=== PATIENT | male | born 1940 | race Caucasian/White ===

== ENCOUNTER 2016-07-26 18:42 | Emergency (ER) | payer MEDICARE, BC ==
[2016-07-26 19:55] VITALS: TEMP 98.4
[2016-07-26] MEDS ORDERED: ONDANSETRON 4 MG/2 ML VIAL IVP STA (21:45)
[2016-07-26] MEDS ORDERED: HYDROmorphone 1 MG/ML 1 ML SYRINGE IVP STA ×2 (21:45→23:30)
[2016-07-26] MEDS ORDERED: SODIUM CHLORIDE 0.9% 1,000 ML IV STA (21:45)
--- NOTE | 2016-07-26 21:48 | ED ---
Abdominal Pain HPI - General Chief Complaint: Abdominal Pain Stated Complaint: abd pain Time Seen by Provider: 07/26/16 21:37 Source: patient, RN notes reviewed Mode of arrival: wheelchair Limitations: no limitations - History of Present Illness Initial Comments: 75 -year-old male presents to the emergency Department chief complaint of right lower quadrant abdominal pain. The patient has been having this pain since this morning. He has had episodes of vomiting as well. He was evaluated by the home care nurse and they were concerned about possible appendicitis. They denies any changes in urination. He denies any changes in bowel movements. They state they were concerned due to the discomfort so they thought that they should be evaluated. Patient denies any recent fever, chills, shortness of breath, chest pain, back pain, numbness or tingling, dysuria or hematuria, constipation or diarrhea, headaches or visual changes, or any other current symptoms. - Related Data Home Medications Medication Instructions Recorded Confirmed Carvedilol [Coreg*] 12.5 mg PO BID 09/09/14 07/26/16 Cholecalciferol [Vitamin D3] 5,000 unit PO QAM 09/09/14 07/26/16 Multivit-Min/FA/Lycopene/Lut 1 tab PO DAILY 09/09/14 07/26/16 [Centrum Silver Tablet] Cranberry Extract [Theracran] 650 mg PO DAILY 03/29/15 07/26/16 Nitroglycerin Sl Tabs [Nitrostat] 0.4 mg SUBLINGUAL Q5M PRN 03/29/15 07/26/16 ALPRAZolam [Xanax] 0.5 mg PO DAILY PRN 07/26/16 07/26/16 Baclofen 10 mg PO BID 07/26/16 07/26/16 Furosemide [Lasix] 40 mg PO DAILY 07/26/16 07/26/16 Glucosam/Chond/Hyalu/Cf Borate 1 tab PO HS 07/26/16 07/26/16 [Move Free Joint Health Tablet] HYDROcodone/APAP 5-325MG [[place] 1 tab PO BID PRN 07/26/16 07/26/16 5-325] Lactobacillus Acidophilus 1 tab PO DAILY 07/26/16 07/26/16 [Acidophilus] Potassium 99 mg PO DAILY 07/26/16 07/26/16 Spironolactone [Aldactone] 50 mg PO DAILY 07/26/16 07/26/16 Previous Rx's Medication Instructions Recorded Hydrocodone/Acetaminophen [[place] 1 each PO Q6HR PRN #20 tab 07/27/16 5-325] Ondansetron Odt [Zofran ODT] 4 mg PO Q8HR PRN #20 tab 07/27/16 Tamsulosin [Flomax] 0.4 mg PO DAILY #5 cap 07/27/16 Allergies Allergy/AdvReac Type Severity Reaction Status Date / Time cephalexin [From Keflex] Allergy Unknown Verified 07/26/16 22:40 ibuprofen [From Advil] Allergy Anaphylaxis Verified 07/26/16 22:29 Review of Systems ROS Statement: Those systems with pertinent positive or pertinent negative responses have been documented in the HPI. ROS Other: All systems not noted in ROS Statement are negative. Past Medical History Past Medical History: Heart Failure, Diabetes Mellitus, GERD/Reflux, Hyperlipidemia, Hypertension, Liver Disease, Myocardial Infarction ([place]), Osteoarthritis (OA), Renal Disease Additional Past Medical History / Comment(s): cardiomyopathy, enlarged liver- liver cirrhosis, gi bleed 2012, sinusitis, diverticultis.c-dff 10-25-10, psoriases, STATED BOARDERLINE DIABETIC NO MEDS AND DOES'NT CHECK BS Last Myocardial Infarction Date:: unk found per old hx History of Any Multi-Drug Resistant Organisms: MRSA Date of last positivie culture/infection: 04-05-15 MDRO Source:: urine Past Surgical History: Orthopedic Surgery Additional Past Surgical History / Comment(s): left hand tendon repair sx, rt eye cataract-lens implant, colonoscopy Past Anesthesia/Blood Transfusion Reactions: No Reported Reaction Past Psychological History: Anxiety, Depression Additional Psychological History / Comment(s): PT IS ALERT AND ORIENTATED LIVES AT HOME WITH HIS . 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 GETS UP WITH CANE/WALKER SHORT DISTANCES ONLY D/T SOB. PAST HX FALLS. Smoking Status: Former smoker Past Alcohol Use History: Abuse, Daily Additional Past Alcohol Use History / Comment(s): QUIT SMOKING 01-08-14 USED TO SMOKE 1PPD NOT SURE HOW MANY YEARS, STATED DRINKS A FIFTH OF VODKA DAILY-DENIES PAST OR PRESENT DRUG USE. Past Drug Use History: None Reported - Past Family History Father Family Medical History: Prostate Disorder General Exam - General Exam Comments Initial Comments: General: The patient is awake and alert, in no distress, and does not appear acutely ill. Eye: Pupils are equal, round and reactive to light, extra-ocular movements are intact; there is normal conjunctiva bilaterally. No signs of icterus. Ears, nose, mouth and throat: There are moist mucous membranes and no oral lesions. Neck: The neck is supple, there is no tenderness. Cardiovascular: There is a regular rate and rhythm. No murmur, rub or gallop is appreciated. Respiratory: Lungs are clear to auscultation, respirations are non-labored, breath sounds are equal. No wheezes, stridor, rales, or rhonchi. Gastrointestinal: Soft, non-distended, right lower quadrant tenderness of the abdomen without masses or organomegaly noted. There is no rebound or guarding present. No CVA tenderness. Bowel sounds are unremarkable. Back: There is no tenderness to palpation in the midline. There is no obvious deformity. No rashes noted. Musculoskeletal: Normal ROM, no tenderness, There is no pedal edema. There is no calf tenderness or swelling. Sensation intact. Pulses equal bilaterally 2+. Neurological: CN II-XII intact, There are no obvious motor or sensory deficits. Coordination appears grossly intact. Speech is normal. Skin: Skin is warm and dry and no rashes or lesions are noted. Psychiatric: Cooperative, appropriate mood & affect, normal judgment. Limitations: no limitations Course Vital Signs 07/26/16 07/26/16 07/26/16 19:51 21:55 22:00 Temperature 98.4 F Pulse Rate 58 L 66 78 Respiratory 18 18 16 Rate Blood Pressure 156/76 181/73 193/83 O2 Sat by Pulse 96 97 100 Oximetry 07/26/16 07/26/16 23:00 23:55 Temperature Pulse Rate 78 66 Respiratory 18 16 Rate Blood Pressure 178/75 166/74 O2 Sat by Pulse 98 95 Oximetry Medical Decision Making - Medical Decision Making 75-year-old male presents for abdominal pain nausea vomiting. Patient's CAT scan is reviewed additional 5 mm stone which is most likely causing the pain. This time the urine was evaluated as well as lab work that does appear to be at baseline. At this time we discussed to increase fluids at home. We discussed we'll give him medication to help with symptoms. We discussed follow-up and return parameters all patient's questions. He stated he understood the plan. They will be discharged home. - Lab Data Result diagrams: 07/26/16 22:10 07/26/16 22:10 Lab Results 07/26/16 07/26/16 07/26/16 Range/Units 22:10 22:10 22:10 WBC 12.5 H (3.8-10.6) k/uL RBC 5.20 (4.30-5.90) m/uL Hgb 15.3 (13.0-17.5) gm/dL Hct 45.2 (39.0-53.0) % MCV 87.0 (80.0-100.0) fL MCH 29.4 (25.0-35.0) pg MCHC 33.8 (31.0-37.0) g/dL RDW 13.8 (11.5-15.5) % Plt Count 263 (150-450) k/uL Neutrophils % 84 % Lymphocytes % 10 % Monocytes % 4 % Eosinophils % 1 % Basophils % 0 % Neutrophils # 10.6 H (1.3-7.7) k/uL Lymphocytes # 1.2 (1.0-4.8) k/uL Monocytes # 0.5 (0-1.0) k/uL Eosinophils # 0.1 (0-0.7) k/uL Basophils # 0.0 (0-0.2) k/uL PT (9.0-12.0) sec INR (<1.1) APTT (22.0-30.0) sec Sodium 140 (137-145) mmol/L Potassium 4.8 (3.5-5.1) mmol/L Chloride 102 (98-107) mmol/L Carbon Dioxide 22 (22-30) mmol/L Anion Gap 16 mmol/L BUN 43 H (9-20) mg/dL Creatinine 2.60 H (0.66-1.25) mg/dL Est GFR (MDRD) Af Amer 29 (>60 ml/min/1.73 sqM) Est GFR (MDRD) Non-Af 24 (>60 ml/min/1.73 sqM) Glucose 134 H (74-99) mg/dL Plasma Lactic Acid Sha 1.4 (0.7-2.0) mmol/L Calcium 9.8 (8.4-10.2) mg/dL Total Bilirubin 1.4 H (0.2-1.3) mg/dL AST 23 (17-59) U/L ALT 24 (21-72) U/L Alkaline Phosphatase 68 (38-126) U/L Total Protein 8.2 (6.3-8.2) g/dL Albumin 4.9 (3.5-5.0) g/dL Amylase 91 (30-110) U/L Lipase 93 (23-300) U/L Urine Color Urine Appearance (Clear) Urine pH (5.0-8.0) Ur Specific [place] (1.001-1.035) Urine Protein (Negative) Urine Glucose (UA) (Negative) Urine Ketones (Negative) Urine Blood (Negative) Urine Nitrite (Negative) Urine Bilirubin (Negative) Urine Urobilinogen (<2.0) mg/dL Ur Leukocyte Esterase (Negative) Urine RBC (0-5) /hpf Urine WBC (0-5) /hpf Ur Squamous Epith Cells (0-4) /hpf Ur Renal Epithelial Cell (0) /hpf Urine Bacteria (None) /hpf 07/26/16 07/26/16 Range/Units 22:10 23:50 WBC (3.8-10.6) k/uL RBC (4.30-5.90) m/uL Hgb (13.0-17.5) gm/dL Hct (39.0-53.0) % MCV (80.0-100.0) fL MCH (25.0-35.0) pg MCHC (31.0-37.0) g/dL RDW (11.5-15.5) % Plt Count (150-450) k/uL Neutrophils % % Lymphocytes % % Monocytes % % Eosinophils % % Basophils % % Neutrophils # (1.3-7.7) k/uL Lymphocytes # (1.0-4.8) k/uL Monocytes # (0-1.0) k/uL Eosinophils # (0-0.7) k/uL Basophils # (0-0.2) k/uL PT 11.1 (9.0-12.0) sec INR 1.1 (<1.1) APTT 24.1 (22.0-30.0) sec Sodium (137-145) mmol/L Potassium (3.5-5.1) mmol/L Chloride (98-107) mmol/L Carbon Dioxide (22-30) mmol/L Anion Gap mmol/L BUN (9-20) mg/dL Creatinine (0.66-1.25) mg/dL Est GFR (MDRD) Af Amer (>60 ml/min/1.73 sqM) Est GFR (MDRD) Non-Af (>60 ml/min/1.73 sqM) Glucose (74-99) mg/dL Plasma Lactic Acid Sha (0.7-2.0) mmol/L Calcium (8.4-10.2) mg/dL Total Bilirubin (0.2-1.3) mg/dL AST (17-59) U/L ALT (21-72) U/L Alkaline Phosphatase (38-126) U/L Total Protein (6.3-8.2) g/dL Albumin (3.5-5.0) g/dL Amylase (30-110) U/L Lipase (23-300) U/L Urine Color Light Yellow Urine Appearance Clear (Clear) Urine pH 5.5 (5.0-8.0) Ur Specific [place] 1.008 (1.001-1.035) Urine Protein Negative (Negative) Urine Glucose (UA) Negative (Negative) Urine Ketones Negative (Negative) Urine Blood Trace H (Negative) Urine Nitrite Negative (Negative) Urine Bilirubin Negative (Negative) Urine Urobilinogen <2.0 (<2.0) mg/dL Ur Leukocyte Esterase Negative (Negative) Urine RBC 3 (0-5) /hpf Urine WBC 1 (0-5) /hpf Ur Squamous Epith Cells <1 (0-4) /hpf Ur Renal Epithelial Cell <1 (0) /hpf Urine Bacteria Rare H (None) /hpf - Radiology Data Radiology results: report reviewed, image reviewed Disposition Clinical Impression: Ureteral calculus Disposition: HOME SELF-CARE Condition: Stable Instructions: Kidney Stones (ED) Additional Instructions: Please use medication as discussed. Please follow up with family doctor if symptoms have not improved over the next two days. Please return to the emergency room if your symptoms increase or worsen or for any other concerns. Prescriptions: Hydrocodone/Acetaminophen [[place] 5-325] 1 each PO Q6HR PRN #20 tab PRN Reason: Pain Ondansetron Odt [Zofran ODT] 4 mg PO Q8HR PRN #20 tab PRN Reason: Nausea Tamsulosin [Flomax] 0.4 mg PO DAILY #5 cap Referrals: Ольга Torres DO [Primary Care Provider] - 1-2 days Carols Dyson MD [STAFF PHYSICIAN] - 1-2 days Time of Disposition: 00:40
[2016-07-26 22:37] LABS: Basophils % (A) 0 %; CH 30.4; CHCM 35.2; Eosinophils # (A) 0.1 k/uL (0-0.7); Eosinophils % (A) 1 %; HCT 45.2 % (39.0-53.0); HDW 3.05; HGB 15.3 gm/dL (13.0-17.5); Luc # (Auto) 0.15; Luc % (Auto) 1; Lymphocytes # (A) 1.2 k/uL (1.0-4.8); Lymphocytes % (A) 10 %; MCH 29.4 pg (25.0-35.0); MCHC 33.8 g/dL (31.0-37.0); Mean Platelet Volume 7.1; Monocytes # (A) 0.5 k/uL (0-1.0); Monocytes % (A) 4 %; Neutrophils # (A) 10.6 k/uL (1.3-7.7); Neutrophils % (A) 84 %; RDW 13.8 % (11.5-15.5); WBC 12.5 k/uL (3.8-10.6); WBC (Perox) 12.74
[2016-07-26 22:47] LABS: INR 1.1 (<1.1); Partial Thromboplastin Time 24.1 sec (22.0-30.0); Prothrombin Time 11.1 sec (9.0-12.0)
[2016-07-26 22:51] LABS: Calcium 9.8 mg/dL (8.4-10.2); Potassium 4.8 mmol/L (3.5-5.1); Total Bilirubin 1.4 mg/dL (0.2-1.3); Total Protein 8.2 g/dL (6.3-8.2)
--- NOTE | 2016-07-26 23:18 | CT ---
EXAM: CT ABDOMEN + PELVIS Without Contrast INDICATION: 75-year-old male with pain. COMPARISON: CT abdomen and pelvis 03/28/2015. TECHNIQUE: Multiple axial CT images of the abdomen and pelvis without contrast material. Renal stone protocol. Reformatted coronal and sagittal images are submitted. DOSE: CTDI is 27.8 mGy and DLP is 1364.8 mGy-cm. DOSE REDUCTION: This CT exam was performed using one or more of the following dose reduction techniques: automated exposure control, adjustment of the mA and/or kV according to patient size, and/or use of iterative reconstruction technique. FINDINGS: Lung bases: Lung bases are clear. No pleural effusions. Solid organs: Redemonstrated multiple renal calculi in both kidneys measuring up to 1.0 cm in the inferior pole of the right kidney. There is moderate right hydronephrosis and mild hydroureter with a 5 mm stone in the distal right ureter at the ureterovesical junction. Redemonstrated plaque-like calcification in the posterior inferior right urinary bladder near the right ureteral orifice, unchanged. There is cortical atrophy in both kidneys, as before. No significant change since comparison. Mild right periureteral and perinephric stranding. Cholelithiasis. Remaining solid organs are unremarkable in this noncontrasted examination tailored for the evaluation of renal calculi. GI tract: No bowel obstruction. Colonic diverticulosis with evidence of diverticulitis. Stomach and small bowel are within normal limits. No free intraperitoneal air or fluid. Lymph nodes: No adenopathy. Vascular: Arteriovascular calcifications, as before. No evidence of aneurysm. Musculoskeletal: Osseous demineralization. No acute osseous abnormality. No aggressive appearing osseous lesion. Stable compression deformity of the T12 vertebral body. Stable small fat-containing umbilical hernia. Pelvic contents: No pelvic adenopathy, free fluid, or inflammatory process. Coarse calcific and the prostate gland are noted. IMPRESSION: 1. A 5 mm obstructing calculus in distal right ureter near the ureterovesical junction results in moderate obstructive uropathy. 2. Stable bilateral cortical atrophy and nonobstructing calculi in both kidneys. 3. Cholelithiasis. 4. Colonic diverticulosis without evidence of diverticulitis. 5. Additional chronic findings, as above.
[2016-07-26] MEDS ORDERED: TAMSULOSIN 0.4 MG CAP.ER.24H PO STA (23:19)
[2016-07-27 00:27] LABS: Appearance,Urine Clear (Clear); Bacteria,Urine Rare /hpf; Bilirubin,Urine Negative (Negative); Glucose,Urine (UA) Negative (Negative); Ketones,Urine Negative (Negative); Leukocyte Esterase,Urine Negative (Negative); Nitrite,Urine Negative (Negative); PH, Urine 5.5 (5.0-8.0); Particle Count 4410; Protein,Urine Negative (Negative); RBC,Urine 3 /hpf (0-5); Renal Epithelial Cells,Urine <1 /hpf (0); Specific Gravity,Urine 1.008 (1.001-1.035); Squamous Epithelial Cell,Urine <1 /hpf (0-4); UA Billing (MACRO vs. MICRO) MICRO; Urobilinogen,Urine <2.0 mg/dL (<2.0); WBC,Urine 1 /hpf (0-5)
[2016-07-27 00:57] VITALS: BP 138/78; PULSE 62; RESP 18
== END 2016-07-27 00:55 | disposition home or self-care (01) ==
LOC: EC 18:42
DX: N20.1 Calculus of ureter (principal); M19.90 Unspecified osteoarthritis, unspecified site; I11.0 Hypertensive heart disease with heart failure; I50.9 Heart failure, unspecified; Z88.1 Allergy status to other antibiotic agents; Z88.8 Allergy status to other drugs, medicaments and biological substances; Z87.891 Personal history of nicotine dependence; Z79.899 Other long term (current) drug therapy
CPT/HCPCS: 99284; 96374; 96376; 96375; 96361; 36415; 80053; 82150; 83605; 83690; 85025; 85610; 85730; 81001; 87040; 87086; 74176; J2405; J1170

== ENCOUNTER 2020-08-01 11:53 | Inpatient (IN) | payer MEDICARE, BC ==
[2020-08-01] MEDS ORDERED: HYDROmorphone 0.5 MG/0.5 ML SYRINGE IVP STA (12:22)
--- NOTE | 2020-08-01 12:24 | ED ---
General Adult HPI - General Chief complaint: Upper Respiratory Infection Stated complaint: CHF Pnuemonia Time Seen by Provider: 08/01/20 12:00 Source: patient, EMS, RN notes reviewed, old records reviewed Mode of arrival: EMS Limitations: no limitations - History of Present Illness Initial comments: This is a 79-year-old male who was transferred from [facility] he had initially gone there this morning because of difficulty breathing son called EMS because he was short of breath. After he went to [facility] they indicated that the patient had congestive heart failure and maybe pneumonia. Patient did not have an EKG in the packet patient did not have an x-ray or an x- ray read in the packet. No antibiotics were given that we can tell. Patient currently complains of some back pain which she states is chronic but it hurts laying in the bed. Patient denies any shortness of breath currently. Patient denies any chest pain or palpitations. Patient denies abdominal pain patient denies nausea vomiting or diarrhea. - Related Data Home Medications Medication Instructions Recorded Confirmed Cholecalciferol [Vitamin D3 (25 5,000 unit PO QAM 09/09/14 07/26/16 Mcg = 1000 Iu)] Multivit-Min/FA/Lycopene/Lut 1 tab PO DAILY 09/09/14 07/26/16 [Centrum Silver Tablet] carvediloL [Coreg*] 12.5 mg PO BID 09/09/14 07/26/16 Cranberry Fruit Extract [Theracran] 650 mg PO DAILY 03/29/15 07/26/16 Nitroglycerin Sl Tabs [Nitrostat] 0.4 mg SUBLINGUAL Q5M PRN 03/29/15 07/26/16 ALPRAZolam [Xanax] 0.5 mg PO DAILY PRN 07/26/16 07/26/16 Baclofen 10 mg PO BID 07/26/16 07/26/16 Furosemide [Lasix] 40 mg PO DAILY 07/26/16 07/26/16 Glucosam/Chond/Hyalu/Cf Borate 1 tab PO HS 07/26/16 07/26/16 [Move Free Joint Health Tablet] HYDROcodone/APAP 5-325MG [[place] 1 tab PO BID PRN 07/26/16 07/26/16 5-325] Lactobacillus Acidophilus 1 tab PO DAILY 07/26/16 07/26/16 [Acidophilus] Potassium 99 mg PO DAILY 07/26/16 07/26/16 Spironolactone [Aldactone] 50 mg PO DAILY 07/26/16 07/26/16 Previous Rx's Medication Instructions Recorded Hydrocodone/Acetaminophen [[place] 1 each PO Q6HR PRN #20 tab 07/27/16 5-325] Ondansetron Odt [Zofran ODT] 4 mg PO Q8HR PRN #20 tab 07/27/16 Tamsulosin [Flomax] 0.4 mg PO DAILY #5 cap 07/27/16 Allergies Allergy/AdvReac Type Severity Reaction Status Date / Time cephalexin [From Keflex] Allergy Unknown Verified 07/26/16 22:40 ibuprofen [From Advil] Allergy Anaphylaxis Verified 07/26/16 22:29 Review of Systems ROS Statement: Those systems with pertinent positive or pertinent negative responses have been documented in the HPI. ROS Other: All systems not noted in ROS Statement are negative. Past Medical History Past Medical History: Heart Failure, Diabetes Mellitus, GERD/Reflux, Hyperlipidemia, Hypertension, Liver Disease, Myocardial Infarction ([place]), Osteoarthritis (OA), Renal Disease Additional Past Medical History / Comment(s): cardiomyopathy, enlarged liver- liver cirrhosis, gi bleed 2012, sinusitis, diverticultis.c-dff 10-25-10, psoriases, STATED BOARDERLINE DIABETIC NO MEDS AND DOES'NT CHECK BS Last Myocardial Infarction Date:: unk found per old hx History of Any Multi-Drug Resistant Organisms: MRSA Date of last positivie culture/infection: 04-05-15 MDRO Source:: urine Past Surgical History: Orthopedic Surgery Additional Past Surgical History / Comment(s): left hand tendon repair sx, rt eye cataract-lens implant, colonoscopy Past Anesthesia/Blood Transfusion Reactions: No Reported Reaction Past Psychological History: Anxiety, Depression Smoking Status: Former smoker Past Alcohol Use History: None Reported Past Drug Use History: None Reported - Past Family History Father Family Medical History: Prostate Disorder General Exam - General Exam Comments Initial Comments: GENERAL: Patient is well-developed and well-nourished. Patient is nontoxic and well- hydrated and is in mild distress. ENT: Neck is soft and supple. No significant lymphadenopathy is noted. Oropharynx is clear. Moist mucous membranes. Neck has full range of motion without eliciting any pain. EYES: The sclera were anicteric and conjunctiva were pink and moist. Extraocular movements were intact and pupils were equal round and reactive to light. Eyelids were unremarkable. PULMONARY: Unlabored respirations. Good breath sounds bilaterally. Crackles at the bases more in the right than the left CARDIOVASCULAR: There is a regular rate and rhythm without any murmurs gallops or rubs. ABDOMEN: Soft and nontender with normal bowel sounds. SKIN: Skin is clear with no lesions or rashes and otherwise unremarkable. NEUROLOGIC: Patient is alert and oriented x3. Cranial nerves II through XII are grossly intact. Motor and sensory are also intact. Normal speech, volume and content. Symmetrical smile. MUSCULOSKELETAL: Normal extremities with adequate strength and full range of motion. 1+ edema bilateral LYMPHATICS: No significant lymphadenopathy is noted PSYCHIATRIC: Normal psychiatric evaluation. Limitations: no limitations Course Vital Signs 08/01/20 08/01/20 12:05 13:23 Temperature 99.2 F Pulse Rate 95 70 Respiratory 18 18 Rate Blood Pressure 130/74 122/51 O2 Sat by Pulse 95 98 Oximetry Medical Decision Making - Medical Decision Making EKG shows sinus rhythm at 89 bpm WA interval is 216 QRS is 174 QT interval 446 QTC is 542 patient's left bundle branch block. Patient also has some occasional PVCs. Lactic acid was within normal range and troponin was unchanged. I spoke with Dr. Preston he agreed to admit the patient and the patient and wrote admitting orders. - Lab Data Lab Results 08/01/20 08/01/20 Range/Units 12:31 12:31 Plasma Lactic Acid Sha 1.2 (0.7-2.0) mmol/L Troponin I 0.033 (0.000-0.034) ng/mL Disposition Clinical Impression: Pulmonary edema Disposition: ADMITTED IP TO THIS HOSP Referrals: Ольга Torres DO [Primary Care Provider] - 1-2 days Time of Disposition: 14:27
--- NOTE | 2020-08-01 13:31 | XR ---
EXAMINATION TYPE: XR chest 2V DATE OF EXAM: 08/01/2020 COMPARISON: 04/06/2015 HISTORY: Shortness of breath TECHNIQUE: Frontal and lateral views of the chest are obtained. FINDINGS: Scattered senescent parenchymal changes noted. No evidence for infiltrate. No evidence for atelectasis. Heart size is stable. Mediastinal structures are stable and grossly unremarkable. No evidence for hilar prominence. Degenerative changes dorsal spine. IMPRESSION: 1. No evidence for acute pulmonary disease.
[2020-08-01] MEDS: FUROSEMIDE 10 MG/ML 2 ML VIAL IV SCH (15:15)
[2020-08-01 21:58] LABS: Glucose,Whole Blood 114 mg/dL (75-99)
[2020-08-01] MEDS: ALPRAZolam 0.5 MG TAB PO SCH (23:34)
[2020-08-01] MEDS: ATORVASTATIN 10 MG TAB PO SCH (23:34)
[2020-08-02] MEDS: FUROSEMIDE 10 MG/ML 2 ML VIAL IV SCH ×2 (02:29→15:08)
[2020-08-02] MEDS: BACLOFEN 10 MG TAB PO SCH (08:20)
[2020-08-02] MEDS: ATORVASTATIN 10 MG TAB PO SCH (08:20)
[2020-08-02] MEDS: SPIRONOLACTONE 25 MG TAB PO SCH (08:20)
[2020-08-02] MEDS: carvediloL 12.5 MG TAB PO SCH ×2 (08:21→18:07)
[2020-08-02] MEDS: predniSONE 5 MG TAB PO SCH (10:33)
[2020-08-02 11:52] LABS: Glucose,Whole Blood 142 mg/dL (75-99)
--- NOTE | 2020-08-02 12:42 | P.CRDCN ---
History of Present Illness History of present illness: HISTORY OF PRESENTING ILLNESS The patient is a pleasant 73-year-old male patient with a past medical history significant for congestive heart failure with reduced EF 20-25%, diabetes type 2, hypertension, dyslipidemia, as well as liver cirrhosis who follow up with Dr. Sheldon as an outpatient one time in 2015 but he did not follow- up with him after that one visit. We have been asked to see in consultation for congestive heart failure. Patient presents to [facility] as a transfer from [facility]. Per Chart Review, Friday07/29/2020 in the afternoon patient had a mechanical fall. Patient step daughter states she was outside and had patient yelling "help". Patient was found lying on the bathroom floor, skin tear second digit and bruising present to left hand. EMS was called and patient refused transfer to the hospital. Patient has purposely gotten weaker since the fall unable to stand on his own. He was previously ambulatory with a walker. Patient was brought to [place] due to difficulty breathing. Patient seen and examined at bedside. When asking him how he fell, he states he just got very weak and felt his legs give out. in 2015 patient was found to have cardiomyopathy with an EF 25%. At that time patient had a long discussion with Dr. Sheldon and he agreed to only have medical treatment. He was maximize the medical treatment except an ADRIAN inhibitor due to his kidney function at that time. Patient is a former smoker. He denies alcohol use. he denies chest pain, palpitations, lightheadedness, dizziness, nausea,diaphorsis. EKG reveals sinus mechanism, left bundle branch block Prior EKGs -showing sinus mechanism was left bundle branch block morphology. Chest xray no acute cardiopulmonary process. Laboratory reviewed at [facility] and [facility]- troponin negative x 3, Covid-19 negative, Pro BNP- 1,280, lactic 3.3- 1.2, TSH 1.6, WBC 13.04, Hgb 13.9, Plt 181. Current cardiac medications include carvedilol 12.5 mg twice daily, spironolactone 50 mg daily, Lasix 20 mg daily, atorvastatin 10 mg daily. Echocardiogram 09/2014 EF 20-25%, trace to mild mitral regurgitation REVIEW OF SYSTEMS At the time of my exam: CONSTITUTIONAL: Denies fever or chills. CARDIOVASCULAR: +shortness of breath Denies chest pain, orthopnea, PND or palpitations. RESPIRATORY: Denies cough. GASTROINTESTINAL: Denies abdominal pain, diarrhea, constipation, nausea or vomiting. MUSCULOSKELETAL: +weakness bilateral lower extremities. Denies myalgias. NEUROLOGIC: Denies numbness, tingling, headacbe or weakness. ENDOCRINE: Denies fatigue, weight change, polydipsia or polyurina. GENITOURINARY: Denies burning, hematuria or urgency with micturation. HEMATOLOGIC: Denies history of anemia or bleeding. PHYSICAL EXAMINATION Blood pressure 137/74 heart rate 74 afebrile and maintaining oxygen saturation on 3L nasal cannula . CONSTITUTIONAL: No apparent distress. HEENT: Head is normocephalic. Pupils are equal, round. Sclerae anicteric. Mucous membranes of the mouth are moist. No JVD. No carotid bruit. CHEST EXAMINATION: Lungs are clear to auscultation. No chest wall tenderness is noted on palpation or with deep breathing. HEART EXAMINATION: Regular rate and rhythm. S1, S2 heard. No murmurs, gallops or rub. ABDOMEN: Soft, nontender. Positive bowel sounds. EXTREMITIES: 2+ peripheral pulses, no lower extremity edema and no calf tenderness. NEUROLOGIC EXAMINATION: Patient is awake, alert and oriented x3. ASSESSMENT Mechanical Fall Shortness of breath Acute on Chronic Systolic heart failure with previous EF 20-25% Type 2 diabetes Hypertension Dyslipidemia History of liver disease PLAN Obtain 2D echocardiogram Continue maximizing medical therapy with Lasix, statin, carvedilol, spironolactone Monitor renal function and electrolytes Further recommendations based on clinical course Nurse Practitioner note has been reviewed, I agree with a documented findings and plan of care. Patient was seen and examined. Past Medical History Past Medical History: Heart Failure, Diabetes Mellitus, GERD/Reflux, Hy perlipidemia, Hypertension, Liver Disease, Myocardial Infarction ([place]), Osteoarthritis (OA), Renal Disease Additional Past Medical History / Comment(s): cardiomyopathy, enlarged liver- liver cirrhosis, gi bleed 2012, sinusitis, diverticultis.c-dff 10-25-10, psoriases, STATED BOARDERLINE DIABETIC NO MEDS AND DOES'NT CHECK BS Last Myocardial Infarction Date:: unk found per old hx History of Any Multi-Drug Resistant Organisms: MRSA Date of last positivie culture/infection: 1-27-16 MDRO Source:: urine Past Surgical History: Orthopedic Surgery Additional Past Surgical History / Comment(s): left hand tendon repair sx, rt eye cataract-lens implant, colonoscopy Past Anesthesia/Blood Transfusion Reactions: No Reported Reaction Past Psychological History: Anxiety, Depression Additional Psychological History / Comment(s): PT IS ALERT AND ORIENTATED LIVES AT HOME WITH HIS . PT IS A RETIRED [employer]. GETS UP WITH CANE/WALKER SHORT DISTANCES ONLY D/T SOB. PAST HX FALLS. Smoking Status: Former smoker Past Alcohol Use History: None Reported Additional Past Alcohol Use History / Comment(s): QUIT SMOKING 01-08-14 USED TO SMOKE 1PPD NOT SURE HOW MANY YEARS, STATED DRINKS A FIFTH OF VODKA DAILY-DENIES PAST OR PRESENT DRUG USE. Past Drug Use History: None Reported - Past Family History Father Family Medical History: Prostate Disorder Medications and Allergies Home Medications Medication Instructions Recorded Confirmed Type carvediloL [Coreg*] 12.5 mg PO BID 09/09/14 08/01/20 History ALPRAZolam [Xanax] 0.5 mg PO HS 07/26/16 08/01/20 History Baclofen 10 mg PO DAILY 07/26/16 08/01/20 History Spironolactone [Aldactone] 50 mg PO DAILY 07/26/16 08/01/20 History Atorvastatin [Lipitor] 10 mg PO DAILY 08/01/20 08/01/20 History Furosemide [Lasix] 20 mg PO DAILY 08/01/20 08/01/20 History Montelukast [Singulair] 10 mg PO AC-SUPPER 08/01/20 08/01/20 History predniSONE 7.5 mg PO DAILY 08/01/20 08/01/20 History Allergies Allergy/AdvReac Type Severity Reaction Status Date / Time cephalexin [From Keflex] Allergy Unknown Verified 08/01/20 14:57 ibuprofen [From Advil] Allergy Anaphylaxis Verified 08/01/20 14:57 morphine Allergy Unknown Verified 08/01/20 14:57 Physical Exam Vitals: Vital Signs Temp Pulse Pulse Resp BP BP Pulse Ox 08/02/20 07:00 99.3 F 74 20 137/74 97 08/02/20 02:00 99.6 F 75 16 143/82 92 L 08/01/20 21:00 98.5 F 77 16 157/82 99 08/01/20 17:41 70 16 129/61 100 08/01/20 15:19 98.7 F 08/01/20 15:06 92 16 126/68 96 08/01/20 13:23 70 18 122/51 98 Intake and Output 08/01/20 08/02/20 08/02/20 22:59 06:59 14:59 Intake Total 240 240 Output Total 1250 700 Balance -1010 -700 240 Intake: Oral 240 240 Output: Urine 1250 700 Other: Voiding Method Indwelling Catheter Indwelling Catheter Indwelling Catheter Weight 98 kg Results Cardiac Enzymes 08/01/20 Range/Units 12:31 Troponin I 0.033 (0.000-0.034) ng/mL Current Medications Generic Name Dose Route Start Last Admin Trade Name Freq PRN Reason Stop Dose Admin Alprazolam 0.5 mg 08/01/20 23:00 08/01/20 23:34 Alprazolam 0.5 Mg Tab PO 0.5 mg HS JESSICA Administration Atorvastatin Calcium 10 mg 08/01/20 23:00 08/02/20 08:20 Atorvastatin 10 Mg Tab PO 10 mg DAILY JESSICA Administration Baclofen 10 mg 08/02/20 09:00 08/02/20 08:20 Baclofen 10 Mg Tab PO 10 mg DAILY JESSICA Administration Carvedilol 12.5 mg 08/02/20 07:30 08/02/20 08:21 Carvedilol 12.5 Mg Tab PO 12.5 mg BID-W/MEALS JESSICA Administration Furosemide 20 mg 08/01/20 14:30 08/02/20 02:29 Furosemide 10 Mg/Ml 2 Ml Vial IV 20 mg Q12H JESSICA Administration Insulin Aspart 0 unit 08/02/20 12:30 Insulin Aspart (Novolog) 100 Unit/Ml Vial SQ ACHS [facility] Protocol Montelukast Sodium 10 mg 08/02/20 17:30 Montelukast 10 Mg Tab PO AC-SUPPER JESSICA Prednisone 7.5 mg 08/02/20 09:30 08/02/20 10:33 Prednisone 5 Mg Tab PO 7.5 mg DAILY JESSICA Administration Spironolactone 50 mg 08/02/20 09:00 08/02/20 08:20 Spironolactone 25 Mg Tab PO 50 mg DAILY JESSICA Administration Intake and Output 08/01/20 08/02/20 08/02/20 22:59 06:59 14:59 Intake Total 240 240 Output Total 1250 700 Balance -1010 -700 240 Intake: Oral 240 240 Output: Urine 1250 700 Other: Voiding Method Indwelling Catheter Indwelling Catheter Indwelling Catheter Weight 98 kg
[2020-08-02] MEDS: INSULIN ASPART (NovoLOG) 100 UNIT/ML VIAL SQ SCH ×3 (13:12→20:46)
[2020-08-02 15:14] VITALS: BMI 33.8
[2020-08-02 17:35] LABS: Glucose,Whole Blood 257 mg/dL (75-99)
[2020-08-02] MEDS: MONTELUKAST 10 MG TAB PO SCH (18:07)
[2020-08-02 20:13] LABS: Glucose,Whole Blood 161 mg/dL (75-99)
[2020-08-02] MEDS: ALPRAZolam 0.5 MG TAB PO SCH (20:46)
[2020-08-03] MEDS: FUROSEMIDE 10 MG/ML 2 ML VIAL IV SCH ×2 (02:05→15:58)
[2020-08-03 06:21] LABS: ALT 33 U/L (4-49); AST 41 U/L (17-59); African American GFR (CKD) 33 (>60 ml/min/1.73 sqM); Albumin 3.5 g/dL (3.5-5.0); Albumin/Globulin Ratio 1.4; Alkaline Phosphatase 59 U/L (38-126); Anion Gap 10 mmol/L; Blood Urea Nitrogen 42 mg/dL (9-20); Calcium 8.4 mg/dL (8.4-10.2); Carbon Dioxide 27 mmol/L (22-30); Chloride 101 mmol/L (98-107); Globulin 2.5 g/dL; Glucose 92 mg/dL (74-99); Non-African American GFR(CKD) 29 (>60 ml/min/1.73 sqM); Potassium 3.5 mmol/L (3.5-5.1); Sodium 138 mmol/L (137-145); Total Bilirubin 1.9 mg/dL (0.2-1.3)
[2020-08-03 07:31] LABS: Glucose,Whole Blood 98 mg/dL (75-99)
[2020-08-03] MEDS: INSULIN ASPART (NovoLOG) 100 UNIT/ML VIAL SQ SCH ×3 (07:43→18:22)
[2020-08-03] MEDS: carvediloL 12.5 MG TAB PO SCH ×2 (07:44→16:43)
--- NOTE | 2020-08-03 08:25 | P.HPIM ---
History of Present Illness H&P Date: 08/02/20 Chief Complaint: fall, shortness of breath Jose Ramon Naylor is a 79 yo M with PMH of cardiomyopathy, systolic CHF with EF 25%, chronic neck pain who presented to the ED complaining of increasing weakness and shortness of breath. He notes that he had a fall at home a few days ago where his legs gave out from under him and family heard him call out from help. EMS came to evaluate pt and recommended he come to hospital but he declined. He has worsened since then. On presentation to the ED his vitals were stable, labs notable for Cr 2.2, trop negative, COVID negative, BNP 1200. Review of Systems All systems: negative Constitutional: Reports weakness, Denies chills, Denies fever Eyes: denies blurred vision, denies pain Ears, nose, mouth and throat: Denies headache, Denies sore throat Cardiovascular: Reports syncope, Denies chest pain, Denies shortness of breath Respiratory: Reports cough with sputum, Denies cough Gastrointestinal: Denies abdominal pain, Denies diarrhea, Denies nausea, Denies vomiting Musculoskeletal: Denies myalgias Integumentary: Denies pruritus, Denies rash Neurological: Denies numbness, Denies weakness Psychiatric: Denies anxiety, Denies depression Endocrine: Denies fatigue, Denies weight change Past Medical History Past Medical History: Heart Failure, Diabetes Mellitus, GERD/Reflux, Hype rlipidemia, Hypertension, Liver Disease, Myocardial Infarction ([place]), Osteoarthritis (OA), Renal Disease Additional Past Medical History / Comment(s): cardiomyopathy, enlarged liver- liver cirrhosis, gi bleed 2012, sinusitis, diverticultis.c-dff 10-25-10, psoriases, STATED BOARDERLINE DIABETIC NO MEDS AND DOES'NT CHECK BS Last Myocardial Infarction Date:: unk found per old hx History of Any Multi-Drug Resistant Organisms: MRSA Date of last positivie culture/infection: 04-05-15 MDRO Source:: urine Past Surgical History: Orthopedic Surgery Additional Past Surgical History / Comment(s): left hand tendon repair sx, rt eye cataract-lens implant, colonoscopy Past Anesthesia/Blood Transfusion Reactions: No Reported Reaction Past Psychological History: Anxiety, Depression Additional Psychological History / Comment(s): PT IS ALERT AND ORIENTATED LIVES AT HOME WITH HIS . PT IS A RETIRED DISTRIBUTION DISPATCHER. GETS UP WITH CANE/WALKER SHORT DISTANCES ONLY D/T SOB. PAST HX FALLS. Smoking Status: Former smoker Past Alcohol Use History: None Reported Additional Past Alcohol Use History / Comment(s): QUIT SMOKING 01-08-14 USED TO SMOKE 1PPD NOT SURE HOW MANY YEARS, STATED DRINKS A FIFTH OF VODKA DAILY-DENIES PAST OR PRESENT DRUG USE. Past Drug Use History: None Reported - Past Family History Father Family Medical History: Prostate Disorder Medications and Allergies Home Medications Medication Instructions Recorded Confirmed Type carvediloL [Coreg*] 12.5 mg PO BID 09/09/14 08/01/20 History ALPRAZolam [Xanax] 0.5 mg PO HS 07/26/16 08/01/20 History Baclofen 10 mg PO DAILY 07/26/16 08/01/20 History Spironolactone [Aldactone] 50 mg PO DAILY 07/26/16 08/01/20 History Atorvastatin [Lipitor] 10 mg PO DAILY 08/01/20 08/01/20 History Furosemide [Lasix] 20 mg PO DAILY 08/01/20 08/01/20 History Montelukast [Singulair] 10 mg PO AC-SUPPER 08/01/20 08/01/20 History predniSONE 7.5 mg PO DAILY 08/01/20 08/01/20 History Allergies Allergy/AdvReac Type Severity Reaction Status Date / Time cephalexin [From Keflex] Allergy Unknown Verified 08/01/20 14:57 ibuprofen [From Advil] Allergy Anaphylaxis Verified 08/01/20 14:57 morphine Allergy Unknown Verified 08/01/20 14:57 Physical Exam Vitals: Vital Signs Temp Pulse Resp BP Pulse Ox 08/02/20 20:00 98.1 F 85 17 105/55 97 08/02/20 15:00 99.1 F 93 20 103/54 95 08/02/20 07:00 99.3 F 74 20 137/74 97 08/02/20 02:00 99.6 F 75 16 143/82 92 L Intake and Output 08/02/20 08/02/20 08/03/20 14:59 22:59 06:59 Intake Total 477 Output Total 0 600 Balance 477 -600 Intake: Oral 477 Output: Urine 600 Other 0 Other: Voiding Method Indwelling Catheter Indwelling Catheter # Voids 2 Weight 89.5 kg General: well nourished, well developed, NAD. Vitals reviewed Eyes: PERRL, EOMI, conjunctiva normal HENT: normocephalic, mucus membranes moist Neck: supple, no JVD Lungs: normal respiratory effort, no wheezes or rales CV: Regular rate and rhythm, systolic murmur. Peripheral pulses 2+ Abdomen: soft, nondistended, no organomegaly Lymph: no cervical or axillary LAD Skin: warm and dry. Neuro: A&Ox3, normal mood and affect Results CBC & Chem 7: 08/03/20 04:37 Labs: Abnormal Lab Results - Last 24 Hours (Table) 08/02/20 08/02/20 08/02/20 Range/Units 11:49 17:32 20:11 POC Glucose (mg/dL) 142 H 257 H 161 H (75-99) mg/dL Thrombosis Risk Factor Assmnt - Choose All That Apply Each Factor Represents 1 point: Heart failure (<1month), Obesity (BMI >25), Swollen legs (current) Each Risk Factor Represents 3 Points: Age 75 years or older Thrombosis Risk Factor Assessment Total Risk Factor Score: 6 Thrombosis Risk Factor Assessment Level: High Risk Assessment and Plan (1) CHF exacerbation Current Visit: Yes Status: Acute Onset Date: 09/09/14 Code(s): I50.9 - HEART FAILURE, UNSPECIFIED SNOMED Code(s): 538384426 (2) Acute on chronic renal failure Current Visit: No Status: Acute Code(s): N17.9 - ACUTE KIDNEY FAILURE, UNSPECIFIED SNOMED Code(s): 527483096 (3) Cardiomyopathy Current Visit: No Status: Acute Code(s): I42.9 - CARDIOMYOPATHY, UNSPECIFIED SNOMED Code(s): 01216983 (4) Obesity (BMI 30-39.9) Current Visit: No Status: Acute Code(s): E66.9 - OBESITY, UNSPECIFIED SNOMED Code(s): 426379712 (5) Physical debility Current Visit: No Status: Acute Code(s): R53.81 - OTHER MALAISE SNOMED Code(s): 84465065 Plan: 1. Acute on chronic systolic CHF. Cardiology consult. Continue with current medical therapy including IV lasix 20 mg bid, coreg, aldactone 2. Chronic kidney disease stage 3. Continue to monitor renal function closely 3. Weakness and physical debility. PT to eval
[2020-08-03] MEDS: SPIRONOLACTONE 25 MG TAB PO SCH (08:50)
[2020-08-03] MEDS: ATORVASTATIN 10 MG TAB PO SCH (08:50)
[2020-08-03] MEDS: BACLOFEN 10 MG TAB PO SCH (08:50)
[2020-08-03] MEDS: predniSONE 5 MG TAB PO SCH (08:51)
--- NOTE | 2020-08-03 10:10 | P.PN ---
Subjective Progress Note Date: 08/03/20 Jose Ramon Naylor is a 79 yo M with PMH of cardiomyopathy, systolic CHF with EF 25%, chronic neck pain who presented to the ED complaining of increasing weakness and shortness of breath. He notes that he had a fall at home a few days ago where his legs gave out from under him and family heard him call out from help. EMS came to evaluate pt and recommended he come to hospital but he declined. He has worsened since then. On presentation to the ED his vitals were stable, labs notable for Cr 2.2, trop negative, COVID negative, BNP 1200. 08/03/2020 Diuresing well on Lasix IV push with 24-hour I&O reflecting a negative fluid balance, no edema. Renal function trending down to 2.11. Reports most nonproductive cough with occasional productive cough with clear phlegm. Maintaining O2 sats in the 90s on 3 L nasal cannula. Extremely weak, unable to sit forward without assistance. Afebrile, T-max 99.3. Denies chest pain, palpitations. Objective - Vital Signs Vital signs: Vital Signs Temp 98.0 F 08/03/20 07:00 Pulse 62 08/03/20 07:00 Resp 20 08/03/20 07:00 BP 152/72 08/03/20 07:00 Pulse Ox 98 08/03/20 07:00 Intake & Output 08/02/20 08/03/20 08/03/20 18:59 06:59 18:59 Intake Total 477 120 Output Total 600 700 Balance -123 -580 Weight 98 kg 89.5 kg Intake: Oral 477 120 Output: Urine 600 700 Other 0 Other: Voiding Method Indwelling Catheter Indwelling Catheter # Voids 2 - Exam General: Alert and oriented 3, sitting up in bed, NAD. Vitals reviewed, extremely weak. Eyes: PERRL, EOMI, conjunctiva normal HENT: normocephalic, mucus membranes moist Neck: supple, no JVD Lungs: normal respiratory effort, no wheezes or rales CV: Regular rate and rhythm, systolic murmur. Peripheral pulses 2+, no edema Abdomen: soft, nondistended, no organomegaly, positive bowel sounds. Camacho catheter present with clear yellow urine. Skin: warm and dry. Neuro: Cranial nerves II through XII grossly intact, normal mood and affect - Labs CBC & Chem 7: 08/03/20 04:37 Labs: Abnormal Lab Results - Last 24 Hours (Table) 08/02/20 08/02/20 08/02/20 Range/Units 11:49 17:32 20:11 BUN (9-20) mg/dL Creatinine (0.66-1.25) mg/dL POC Glucose (mg/dL) 142 H 257 H 161 H (75-99) mg/dL Total Bilirubin (0.2-1.3) mg/dL Total Protein (6.3-8.2) g/dL 08/03/20 Range/Units 04:37 BUN 42 H (9-20) mg/dL Creatinine 2.11 H (0.66-1.25) mg/dL POC Glucose (mg/dL) (75-99) mg/dL Total Bilirubin 1.9 H (0.2-1.3) mg/dL Total Protein 6.0 L (6.3-8.2) g/dL Assessment and Plan Assessment: (1) acute on chronic CHF exacerbation, systolic exacerbation Current Visit: Yes Status: Acute Onset Date: 09/09/14 Code(s): I50.9 - HEART FAILURE, UNSPECIFIED SNOMED Code(s): 192051280 (2) Acute on chronic renal failure stage III Current Visit: No Status: Acute Code(s): N17.9 - ACUTE KIDNEY FAILURE, UNSPECIFIED SNOMED Code(s): 708644326 (3) Cardiomyopathy Current Visit: No Status: Acute Code(s): I42.9 - CARDIOMYOPATHY, UNSPECIFIED SNOMED Code(s): 65194447 (4) Obesity (BMI 30-39.9) Current Visit: No Status: Acute Code(s): E66.9 - OBESITY, UNSPECIFIED SNOMED Code(s): 591795061 (5) Physical debility Current Visit: No Status: Acute Code(s): R53.81 - OTHER MALAISE SNOMED Code(s): 24218004 Plan: Continue on current medication regime ,monitoring and symptomatic treatment. Continue diuresing with close monitoring of renal function. Up in chair with assistance for all meals. PT/OT. Discussed subacute rehab at discharge which patient is in agreement with. Discharge planning in progress for tentatively tomorrow. The impression and plan of care has been dictated as directed. : I performed a history and examination of this patient, discussed the same with the dictator. I agree with the dictator's note ,documented as a scribe. Any additional findings or plans will be noted.
--- NOTE | 2020-08-03 10:20 | P.DS ---
<Madeleine Whalen - Last Filed: 08/03/20 12:27> Providers Expected date of discharge: 08/04/20 Hospital Course: Final diagnoses (1) acute on chronic CHF exacerbation, systolic exacerbation Current Visit: Yes Status: Acute Onset Date: 09/09/14 Code(s): I50.9 - HEART FAILURE, UNSPECIFIED SNOMED Code(s): 183308825 (2) Acute on chronic renal failure stage III Current Visit: No Status: Acute Code(s): N17.9 - ACUTE KIDNEY FAILURE, UNSPECIFIED SNOMED Code(s): 780233842 (3) Cardiomyopathy Current Visit: No Status: Acute Code(s): I42.9 - CARDIOMYOPATHY, UNSPECIFIED SNOMED Code(s): 14741409 (4) Obesity (BMI 30-39.9) Current Visit: No Status: Acute Code(s): E66.9 - OBESITY, UNSPECIFIED SNOMED Code(s): 364016631 (5) Physical debility Current Visit: No Status: Acute Code(s): R53.81 - OTHER MALAISE SNOMED Code(s): 72719743 Hospital course:Jose Ramon Naylor is a 79 yo M with PMH of cardiomyopathy, systolic CHF with EF 25%, chronic neck pain who presented to the ED complaining of increasing weakness and shortness of breath. He notes that he had a fall at home a few days ago where his legs gave out from under him and family heard him call out from help. EMS came to evaluate pt and recommended he come to hospital but he declined. He has worsened since then. On presentation to the ED his vitals were stable, labs notable for Cr 2.2, trop negative, COVID negative, BNP 1200. 08/03/2020 Diuresing well on Lasix IV push with 24-hour I&O reflecting a ne gative fluid balance, no edema. Renal function trending down to 2.11. Reports most nonproductive cough with occasional productive cough with clear phlegm. Maintaining O2 sats in the 90s on 3 L nasal cannula. Extremely weak, unable to sit forward without assistance. Afebrile, T-max 99.3. Denies chest pain, palpitations. Significant clinical improvement. Continue close monitoring of renal function. Denies chest pain, palpitations or increase in shortness of breath. Patient will be discharged to [facility] subacute rehab today in a stable condition with guarded prognosis. The impression and plan of care has been dictated as directed. : I performed a history and examination of this patient, discussed the same with the dictator. I agree with the dictator's note ,documented as a scribe. Any additional findings or plans will be noted. Patient Condition at Discharge: Stable Plan - Discharge Summary New Discharge Prescriptions: New INSULIN ASPART (NovoLOG) [NovoLOG (formulary)] 0 unit SQ ACHS vial Continue carvediloL [Coreg*] 12.5 mg PO BID Baclofen 10 mg PO DAILY Spironolactone [Aldactone] 50 mg PO DAILY predniSONE 7.5 mg PO DAILY Montelukast [Singulair] 10 mg PO AC-SUPPER Furosemide [Lasix] 20 mg PO DAILY Atorvastatin [Lipitor] 10 mg PO DAILY ALPRAZolam [Xanax] 0.5 mg PO HS #3 tab Discharge Medication List carvediloL [Coreg*] 12.5 mg PO BID 09/09/14 [History] Baclofen 10 mg PO DAILY 07/26/16 [History] Spironolactone [Aldactone] 50 mg PO DAILY 07/26/16 [History] Atorvastatin [Lipitor] 10 mg PO DAILY 08/01/20 [History] Furosemide [Lasix] 20 mg PO DAILY 08/01/20 [History] Montelukast [Singulair] 10 mg PO AC-SUPPER 08/01/20 [History] predniSONE 7.5 mg PO DAILY 08/01/20 [History] ALPRAZolam [Xanax] 0.5 mg PO HS #3 tab 08/03/20 [Rx] INSULIN ASPART (NovoLOG) [NovoLOG (formulary)] 0 unit SQ ACHS vial 08/03/20 [Rx] Follow up Appointment(s)/Referral(s): Eliseo Sheldon MD [STAFF PHYSICIAN] - 2 Weeks [facility] [NON-STAFF] - Ольга Torres DO [Primary Care Provider] - 1 Week (After discharge from subacute rehab) Ambulatory/Diagnostic Orders: Complete Blood Count w/diff [LAB.AMB] Time Frame: 3 Days, Location: None Selected Activity/Diet/Wound Care/Special Instructions: [facility] CBC,BMP in 3 days Discharge Disposition: TRANSFER TO SNF/F <Parth Preston - Last Filed: 08/04/20 09:06> Providers Date of admission: 08/02/20 10:56 Attending physician: Parth Preston MD Consults: 08/01/20 14:28 Consult Physician Routine Consulting Provider: [facility] Consult Reason/Comments: Unstable angina Do you want consulting provider notified?: Yes Primary care physician: Ольга Torres - Discharge Diagnosis(es) (1) CHF exacerbation Current Visit: Yes Status: Acute Onset Date: 09/09/14 (2) Acute on chronic renal failure Current Visit: No Status: Acute (3) Cardiomyopathy Current Visit: No Status: Acute (4) Obesity (BMI 30-39.9) Current Visit: No Status: Acute (5) Physical debility Current Visit: No Status: Acute Hospital Course: Encourage PO fluid intake and ambulation with PT. F/u in clinic
--- NOTE | 2020-08-03 11:00 | ECHOF ---
Referral Reason:History of Cardiomyopathy with EF 25% MEASUREMENTS -------- HEIGHT: 170.2 cm WEIGHT: 98.0 kg BP: 137/74 IVSd: 1.5 cm (0.6 - 1.1) LVIDd: 5.3 cm (3.9 - 5.3) LVPWd: 1.5 cm (0.6 - 1.1) EDV(Teich): 136 ml IVSs: 2.0 cm LVIDs: 4.2 cm LVPWs: 1.7 cm %IVS Thck: 39 % ESV(Teich): 78 ml EF(Teich): 43 % %FS: 21 % SV(Teich): 59 ml LA Diam: 3.5 cm (2.7 - 3.8) RVIDd: 2.9 cm (< 3.3) Ao Diam: 4.0 cm (2.0 - 3.7) AV Cusp: 2.0 cm (1.5 - 2.6) EPSS: 1.2 cm MV DecT: 97 ms MV PHT: 36 ms MVA By PHT: 6.1 cm AV Vmax: 1.19 m/s AV maxP.75 mmHg TR Vmax: 2.48 m/s TR maxP.66 mmHg RAP: 5.00 mmHg RVSP: 29.66 mmHg MV EF SLOPE: 28.21 mm/s (70 - 150) MV EXCURSION: 17.01 mm (> 18.000) FINDINGS -------- This was a technically difficult study with suboptimal views. The left ventricular size is normal. There is moderate concentric left ventricular hypertrophy. O verall left ventricular systolic function is severely impaired with, an EF < 20%. The right ventricle is normal in size. The right atrium was not well visualized. 5 ml of Lumason was utilized for enhancement of images. There is mild aortic valve sclerosis. Mild mitral regurgitation is present. Mild tricuspid regurgitation present. Right ventricular systolic pressure is normal at < 35 mmHg. Trace/mild (physiologic) pulmonic regurgitation. The aortic root is dilated measuring 4.0cm. IVC Not well visulized. There is no pericardial effusion. CONCLUSIONS -------- 1. This was a technically difficult study with suboptimal views. 2. The left ventricular size is normal. 3. There is moderate concentric left ventricular hypertrophy. 4. Overall left ventricular systolic function is severely impaired with, an EF < 20%. 5. 5 ml of Lumason was utilized for enhancement of images. 6. There is mild aortic valve sclerosis. 7. Mild mitral regurgitation is present. 8. Mild tricuspid regurgitation present. 9. Trace/mild (physiologic) pulmonic regurgitation. 10. The aortic root is dilated measuring 4.0cm. 11. There is no pericardial effusion. [employer]: Mery Ortiz RDCS
[2020-08-03 11:55] LABS: Glucose,Whole Blood 130 mg/dL (75-99)
--- NOTE | 2020-08-03 13:38 | P.PN ---
Subjective HISTORY OF PRESENTING ILLNESS The patient is a pleasant 73-year-old male patient with a past medical history significant for congestive heart failure with reduced EF 20-25%, diabetes type 2, hypertension, dyslipidemia, as well as liver cirrhosis who follow up with Dr. Sheldon as an outpatient one time in 2015 but he did not follow- up with him after that one visit. We have been asked to see in consultation for congestive heart failure. Patient presents to [facility] as a transfer from [facility]. Per Chart Review, Friday07/29/2020 in the afternoon patient had a mechanical fall. Patient step daughter states she was outside and had patient yelling "help". Patient was found lying on the bathroom floor, skin tear second digit and bruising present to left hand. EMS was called and patient refused transfer to the hospital. Patient has purposely gotten weaker since the fall unable to stand on his own. He was previously ambulatory with a walker. Patient was brought to [place] due to difficulty breathing. Patient seen and examined at bedside. When asking him how he fell, he states he just got very weak and felt his legs give out. in 2015 patient was found to have cardiomyopathy with an EF 25%. At that time patient had a long discussion with Dr. Sheldon and he agreed to only have medical treatment. He was maximize the medical treatment except an ADRIAN inhibitor due to his kidney function at that time. Patient is a former smoker. He denies alcohol use. he denies chest pain, palpitations, lightheadedness, dizziness, nausea,diaphorsis. EKG reveals sinus mechanism, left bundle branch block Prior EKGs -showing sinus mechanism was left bundle branch block morphology. Chest xray no acute cardiopulmonary process. Laboratory reviewed at [place] and [facility]- troponin negative x 3, Covid-19 negative, Pro BNP- 1,280, lactic 3.3- 1.2, TSH 1.6, WBC 13.04, Hgb 13.9, Plt 181. Current cardiac medications include carvedilol 12.5 mg twice daily, spironolactone 50 mg daily, Lasix 20 mg daily, atorvastatin 10 mg daily. Echocardiogram 09/2014 EF 20-25%, trace to mild mitral regurgitation 08/03/20: Patient seen and examined at bedside, no acute distress. Echocardiogram revealed left ventricular systolic function is severely impaired with EF less than 20%, mild mitral regurgitation, moderate tricuspid regurgitation. Patient currently maintained on atorvastatin 10 mg daily, carvedilol 12.5 mg twice a day, Lasix 20 mg IV twice a day, spironolactone 50 mg daily PHYSICAL EXAMINATION Blood pressure 152/72 heart rate 62 afebrile and maintaining oxygen saturation on 3L nasal cannula . CONSTITUTIONAL: No apparent distress. HEENT: Head is normocephalic. No JVD. No carotid bruit. CHEST EXAMINATION: Lungs are clear to auscultation. No chest wall tenderness is noted on palpation or with deep breathing. HEART EXAMINATION: Regular rate and rhythm. S1, S2 heard. No murmurs, gallops or rub. ABDOMEN: Soft, nontender. Positive bowel sounds. EXTREMITIES: 2+ peripheral pulses, no lower extremity edema and no calf tend erness. NEUROLOGIC EXAMINATION: Patient is awake, alert and oriented x3. ASSESSMENT Mechanical Fall Shortness of breath Acute on Chronic Systolic heart failure with previous EF 20-25% Type 2 diabetes Hypertension Dyslipidemia History of liver disease PLAN From cardiology perspective, we will continue maximize medical therapy with Lasix, statin, carvedilol, spironolactone Echocardiogram reviewed No further recommendations from cardiology perspective while patient inpatient. We will sign off at this time Recommend patient follow up with Dr. Sheldon in the outpatient office Nurse Practitioner note has been reviewed, I agree with a documented findings and plan of care. Patient was seen and examined. Objective - Vital Signs Vital signs: Vital Signs Temp 98.0 F 08/03/20 07:00 Pulse 62 08/03/20 07:00 Resp 20 08/03/20 07:00 BP 152/72 08/03/20 07:00 Pulse Ox 98 08/03/20 11:23 Intake & Output 08/02/20 08/03/20 08/03/20 18:59 06:59 18:59 Intake Total 477 120 180 Output Total 600 700 Balance -123 -580 180 Weight 98 kg 89.5 kg Intake: Oral 477 120 180 Output: Urine 600 700 Other 0 Other: Voiding Method Indwelling Catheter Indwelling Catheter Indwelling Catheter # Voids 2 - Labs CBC & Chem 7: 08/03/20 04:37 Labs: Abnormal Lab Results - Last 24 Hours (Table) 08/02/20 08/02/20 08/03/20 Range/Units 17:32 20:11 04:37 BUN 42 H (9-20) mg/dL Creatinine 2.11 H (0.66-1.25) mg/dL POC Glucose (mg/dL) 257 H 161 H (75-99) mg/dL Total Bilirubin 1.9 H (0.2-1.3) mg/dL Total Protein 6.0 L (6.3-8.2) g/dL 08/03/20 Range/Units 11:53 BUN (9-20) mg/dL Creatinine (0.66-1.25) mg/dL POC Glucose (mg/dL) 130 H (75-99) mg/dL Total Bilirubin (0.2-1.3) mg/dL Total Protein (6.3-8.2) g/dL
[2020-08-03] MEDS: MONTELUKAST 10 MG TAB PO SCH (16:43)
[2020-08-03 17:15] LABS: Glucose,Whole Blood 163 mg/dL (75-99)
[2020-08-03] MEDS: ALPRAZolam 0.5 MG TAB PO SCH (20:05)
[2020-08-03 20:23] LABS: Glucose,Whole Blood 129 mg/dL (75-99)
[2020-08-04] MEDS: INSULIN ASPART (NovoLOG) 100 UNIT/ML VIAL SQ SCH ×2 (00:25→07:54)
[2020-08-04] MEDS: FUROSEMIDE 10 MG/ML 2 ML VIAL IV SCH (02:34)
[2020-08-04] MEDS ORDERED: HYDROcodone/APAP 5-325MG 1 EACH TAB PO PRN (05:51)
[2020-08-04 07:22] LABS: Glucose,Whole Blood 104 mg/dL (75-99)
[2020-08-04] MEDS: carvediloL 12.5 MG TAB PO SCH (08:02)
[2020-08-04 08:08] VITALS: BP 132/71; PULSE 63; RESP 17; TEMP 97.9
[2020-08-04] MEDS: SPIRONOLACTONE 25 MG TAB PO SCH (09:19)
[2020-08-04] MEDS: BACLOFEN 10 MG TAB PO SCH (09:19)
[2020-08-04] MEDS: ATORVASTATIN 10 MG TAB PO SCH (09:19)
[2020-08-04] MEDS: predniSONE 5 MG TAB PO SCH (09:20)
== END 2020-08-04 12:33 | DRG 291 ==
LOC: EC 11:53 → 6NMEDSUR 14:29 → OBSVTOIN 08-02 10:56
PROVIDERS: ADMIT Family Medicine; ATTEND Family Medicine
DX: I13.0 Hypertensive heart and chronic kidney disease with heart failure and stage 1 through stage 4 chronic kidney disease, or unspecified chronic kidney disease (principal); I50.23 Acute on chronic systolic (congestive) heart failure; N17.9 Acute kidney failure, unspecified; G89.29 Other chronic pain; I42.9 Cardiomyopathy, unspecified; K21.9 Gastro-esophageal reflux disease without esophagitis; E11.22 Type 2 diabetes mellitus with diabetic chronic kidney disease; E66.9 Obesity, unspecified; E78.5 Hyperlipidemia, unspecified; F32.9 Major depressive disorder, single episode, unspecified; F41.9 Anxiety disorder, unspecified; N18.30 Chronic kidney disease, stage 3 unspecified; Z20.822 Contact with and (suspected) exposure to COVID-19; Z79.899 Other long term (current) drug therapy; Z87.891 Personal history of nicotine dependence; R53.81 Other malaise; I25.2 Old myocardial infarction; K74.60 Unspecified cirrhosis of liver; W18.30XA Fall on same level, unspecified, initial encounter; I34.0 Nonrheumatic mitral (valve) insufficiency; I36.1 Nonrheumatic tricuspid (valve) insufficiency
CPT/HCPCS: 36415; 71046; 80053; 83605; 83735; 84484; 87635; 93005; 93306; 94760; 96374; 99285